=== PATIENT | female | born 1985 | race American Indian/Alaskan Native ===

== ENCOUNTER 2017-02-17 10:22 | Emergency (ER) | payer OTHER ==
[2017-02-17 10:32] VITALS: BP 134/79
--- NOTE | 2017-02-17 10:43 | Emergency Department Report ---
ED Back Pain/Injury HPI - General Chief Complaint: Back Pain/Injury Stated Complaint: BACK PAIN Time Seen by Provider: 02/17/17 10:38 Source: patient Limitations: No Limitations - History of Present Illness MD Complaint: back pain -: Gradual, week(s) Similar Symptoms Previously: No Place: home Radiation: none Severity: moderate Quality: aching Consistency: constant Improves With: none Worsens With: none Associated Symptoms: denies other symptoms, other (recent depo shot). denies: confusion, weakness, chest pain, numbness, difficulty walking, cough, difficulty urinating, diaphoresis, incontinence, fever/chills, constipation, headaches, abdominal pain, loss of appetite, malaise, nausea/vomiting, rash, seizure, shortness of breath, syncope Treatments Prior to Arrival: other medications (flexeril and nsaid her obgyn gave her) - Related Data Home Medications Medication Instructions Recorded Confirmed Last Taken Cyclobenzaprine HCl [Flexeril 5 MG 5 mg PO TID 02/17/17 02/17/17 02/16/17 TAB] Naproxen [Naprosyn] 500 mg PO BID 02/17/17 02/17/17 02/15/17 Allergies Allergy/AdvReac Type Severity Reaction Status Date / Time No Known Allergies Allergy Unverified 02/17/17 10:31 ED Review of Systems ROS: Stated complaint: BACK PAIN Other details as noted in HPI Comment: All other systems reviewed and negative Constitutional: no symptoms reported, see HPI. denies: chills Eyes: as per HPI. denies: eye pain ENT: as per HPI. denies: ear pain, throat pain Respiratory: no symptoms reported, see HPI. denies: cough, orthopnea Cardiovascular: as per HPI. denies: chest pain, palpitations, dyspnea on exertion, orthopnea Endocrine: no symptoms reported, see HPI. denies: excessive sweating, flushing , intolerance to cold, intolerance to heat Gastrointestinal: as per HPI. denies: abdominal pain, nausea, vomiting Genitourinary: as per HPI, other (not sexually active). denies: urgency, dysuria, frequency, hematuria, discharge, abnormal menses, dyspareunia Musculoskeletal: as per HPI, back pain. denies: joint swelling, arthralgia, myalgia Skin: as per HPI. denies: rash, lesions Neurological: as per HPI. denies: headache, weakness Psychiatric: as per HPI. denies: anxiety, depression Hematological/Lymphatic: as per HPI. denies: easy bleeding ED Past Medical Hx - Past Medical History Previous Medical History?: Yes Additional medical history: Back pain, Depo shots - Surgical History Past Surgical History?: No - Family History Family history: no significant - Social History Smoking Status: Never Smoker Substance Use Type: Alcohol, Prescribed - Medications Home Medications: Home Medications Medication Instructions Recorded Confirmed Last Taken Type Cyclobenzaprine HCl [Flexeril 5 MG 5 mg PO TID 02/17/17 02/17/17 02/16/17 History TAB] Naproxen [Naprosyn] 500 mg PO BID 02/17/17 02/17/17 02/15/17 History ED Physical Exam - General Limitations: No Limitations General appearance: alert, in no apparent distress - Head Head exam: Present: atraumatic - Eye Eye exam: Present: normal appearance, PERRL Pupils: Present: normal accommodation - ENT ENT exam: Present: normal exam, mucous membranes moist - Neck Neck exam: Present: normal inspection. Absent: tenderness, meningismus - Respiratory Respiratory exam: Present: normal lung sounds bilaterally. Absent: respiratory distress, wheezes, rales, rhonchi, stridor - Cardiovascular Cardiovascular Exam: Present: regular rate, normal rhythm - GI/Abdominal GI/Abdominal exam: Present: soft - Rectal Rectal exam: Present: deferred - Extremities Exam Extremities exam: Present: normal inspection, full ROM. Absent: tenderness - Back Exam Back exam: Present: normal inspection, muscle spasm, other (large curviature of spine n body habitus). Absent: full ROM, tenderness, CVA tenderness (R), CVA tenderness (L), paraspinal tenderness, vertebral tenderness, rash noted - Expanded Back Exam Expanded Back exam: Absent: saddle anesthesia Back exam: Negative Straight Leg Raising: Left, Right - Neurological Exam Neurological exam: Present: alert, altered, oriented X3, CN II-XII intact, other (large curviture of spine; lifts heavy items for work.) - Psychiatric Psychiatric exam: Present: normal affect, normal mood. Absent: depressed, agitated - Skin Skin exam: Present: warm, dry, intact, normal color. Absent: rash ED Course Vital Signs 02/17/17 10:27 Temperature 97.8 F Pulse Rate 65 Respiratory 18 Rate Blood Pressure 134/79 O2 Sat by Pulse 98 Oximetry - Reevaluation(s) Reevaluation #1: 02/17/17 pt presents w low back pain no dysuria no trauma she lifts heavy objects at work she says that the pains started p depo shot but she has been to ob and he gave her flexeril. she has no vag bleed or hx. she is not sexually active. large curvature of spine xray noted urine noted medicated dc home w follow up ED Medical Decision Making - Radiology Data Radiology results: image reviewed - Differential Diagnosis back pain ro uti v msk etiology Critical care attestation.: If time is entered above; I have spent that time in minutes in the direct care of this critically ill patient, excluding procedure time. ED Disposition Clinical Impression: Back pain Disposition: DC-01 TO HOME OR SELFCARE Is pt being admited?: No Does the pt Need Aspirin: No Condition: Stable Instructions: Low Back Strain (ED), Chronic Back Pain (ED), Back Pain (ED) Additional Instructions: continue your naprosyn and flexeril follow up at the clinic as we discussed given your curve in your spine an ortho MD may be able to help you. see referral given good lifting techniques Referrals: PRIMARY CARE, [Primary Care Provider] - 3-5 Days JEANIE CRUMP MD [Staff Physician] - 3-5 Days Time of Disposition: 12:05
[2017-02-17 11:16] LABS: Bilirubin,Urine NEG (Negative); Blood,Urine NEG (Negative); Ketones,Urine NEG (Negative); Leukocyte Esterase,Urine NEG (Negative); Nitrite,Urine NEG (Negative); Urobilinogen,Urine < 2.0 mg/dL (<2.0); WBC,Urine < 1.0 /HPF (0.0-6.0)
--- NOTE | 2017-02-17 12:00 | XRay Report ---
Lumbar spine 3 views: History: Low back pain. Findings: Mild rotoscoliosis of the lumbar spine with convexity to left. Normal height of vertebral bodies and intervertebral disc. Normal articular surfaces. No fracture. No soft tissue calcification. Impression: No acute bony abnormality.
[2017-02-17] MEDS ORDERED: TORADOL IM ONE (12:01)
[2017-02-17] MEDS ORDERED: DECADRON IM ONE (12:01)
== END 2017-02-17 12:21 | disposition home or self-care (01) ==
LOC: ED 10:22
DX: M54.9 Dorsalgia, unspecified (principal)
CPT/HCPCS: 72100; 81001; 81025; 96372; 99283; J1100; J1885

== ENCOUNTER 2017-07-27 18:14 | Emergency (ER) | payer OTHER ==
[2017-07-27 20:28] LABS: Basophils % (Auto) 0.1 % (0.0-1.8); Hematocrit 42.5 % (30.3-42.9); Hemoglobin 14.6 gm/dl (10.1-14.3); Mean Corpuscular HGB Conc 34 % (30-34); Mean Corpuscular Hemoglobin 30 pg (28-32); Mean Corpuscular Volume 87 fl (79-97); Platelet Count 296 K/mm3 (140-440); Red Blood Count 4.88 M/mm3 (3.65-5.03); Red Cell Distribution Width 12.7 % (13.2-15.2); White Blood Count 5.9 K/mm3 (4.5-11.0)
[2017-07-27 20:45] LABS: Anion Gap 26 mmol/L; BUN/Creatinine Ratio 20; Blood Urea Nitrogen 20 mg/dL (7-17); Calcium 9.8 mg/dL (8.4-10.2); Carbon Dioxide 26 mmol/L (22-30); Chloride 92.5 mmol/L (98-107); Glucose 142 mg/dL (65-100); Potassium 3.5 mmol/L (3.6-5.0); Sodium 141 mmol/L (137-145)
[2017-07-27 20:49] LABS: Bacteria,Urine 1+ /HPF (Negative); Bilirubin,Urine NEG (Negative); Blood,Urine NEG (Negative); Ketones,Urine TR mg/dL (Negative); Leukocyte Esterase,Urine NEG (Negative); Mucus,Urine 2+ /HPF; Nitrite,Urine NEG (Negative); Renal Epithelial Cells,Urine 1 /LPF; Urobilinogen,Urine < 2.0 mg/dL (<2.0)
[2017-07-27 20:50] LABS: Protein,Urine >500 mg/dL (Negative)
[2017-07-28 03:39] VITALS: BP 129/74
== END 2017-07-28 04:25 | disposition left against medical advice (07) ==
LOC: ED 18:14
DX: R11.2 Nausea with vomiting, unspecified (principal); Z53.21 Procedure and treatment not carried out due to patient leaving prior to being seen by health care provider
CPT/HCPCS: 36415; 80048; 81001; 84703; 85025

== ENCOUNTER 2017-07-31 17:43 | Inpatient (IN) | payer OTHER ==
[2017-07-31 19:04] LABS: Basophils % (Auto) 0.2 % (0.0-1.8); Eosinophils % (Auto) 0.1 % (0.0-4.3); Hematocrit 50.4 % (30.3-42.9); Hemoglobin 16.4 gm/dl (10.1-14.3); Mean Corpuscular HGB Conc 33 % (30-34); Mean Corpuscular Hemoglobin 29 pg (28-32); Mean Corpuscular Volume 88 fl (79-97); Platelet Count 349 K/mm3 (140-440); Red Blood Count 5.71 M/mm3 (3.65-5.03); Red Cell Distribution Width 12.8 % (13.2-15.2); White Blood Count 10.7 K/mm3 (4.5-11.0)
[2017-07-31 19:21] LABS: Albumin 5.5 g/dL (3.9-5); Albumin/Globulin Ratio 1.4 %; Bilirubin,Total 1.4 mg/dL (0.1-1.2); Calcium 10.3 mg/dL (8.4-10.2); Chloride 94.1 mmol/L (98-107); Potassium 3.9 mmol/L (3.6-5.0); Total Protein 9.3 g/dL (6.3-8.2)
[2017-07-31 19:41] LABS: Bacteria,Urine 1+ /HPF (Negative); Bilirubin,Urine NEG (Negative); Blood,Urine LG (Negative); Ketones,Urine NEG (Negative); Leukocyte Esterase,Urine TR (Negative); Nitrite,Urine NEG (Negative); Urobilinogen,Urine < 2.0 mg/dL (<2.0)
[2017-07-31 20:47] LABS: Creatine Kinase 71 units/L (30-135)
[2017-07-31 20:54] LABS: Creatine Kinase MB < 1.0 ng/mL (0.0-4.0)
[2017-07-31] MEDS ORDERED: NACL 0.9% 1000 ML 1,000 ML IV ONE (23:28)
[2017-07-31] MEDS ORDERED: ZOFRAN IV ONE (23:28)
--- NOTE | 2017-07-31 23:34 | Emergency Department Report ---
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 Patient was seen in the area on July 27 that she did not wait to be seen by physician. Patient returned today because of continuous vomiting and diarrhea and she felt like she is getting dehydrated. Patient denied any abdominal pain or fever. No other symptoms. MD complaint: nausea, vomiting, diarrhea -: days(s) Description of Vomiting: food contents Description of Diarrhea: water Associated Symptoms: denies other symptoms, loss of appetite, nausea/vomiting - Related Data Home Medications Medication Instructions Recorded Confirmed Last Taken Cyclobenzaprine HCl [Flexeril 5 MG 5 mg PO TID 02/17/17 02/17/17 02/16/17 TAB] Naproxen [Naprosyn] 500 mg PO BID 02/17/17 02/17/17 02/15/17 Allergies Allergy/AdvReac Type Severity Reaction Status Date / Time No Known Allergies Allergy Verified 07/27/17 19:18 ED Review of Systems ROS: Stated complaint: VOMITING Other details as noted in HPI Comment: All other systems reviewed and negative Constitutional: denies: chills, fever Respiratory: denies: cough, orthopnea, shortness of breath, SOB with exertion Cardiovascular: denies: chest pain, palpitations, dyspnea on exertion Gastrointestinal: nausea, vomiting, diarrhea. denies: abdominal pain, hematemesis, melena, hematochezia Neurological: denies: headache, weakness, numbness, paresthesias, abnormal gait ED Past Medical Hx - Past Medical History Additional medical history: Back pain, Depo shots,scoliosis/// alcohol syndrome - Surgical History Past Surgical History?: No - Social History Smoking Status: Never Smoker Substance Use Type: Alcohol - Medications Home Medications: Home Medications Medication Instructions Recorded Confirmed Last Taken Type Cyclobenzaprine HCl [Flexeril 5 MG 5 mg PO TID 02/17/17 02/17/17 02/16/17 History TAB] Naproxen [Naprosyn] 500 mg PO BID 02/17/17 02/17/17 02/15/17 History ED Physical Exam - General Limitations: No Limitations General appearance: alert, in no apparent distress - Head Head exam: Present: atraumatic, normocephalic, normal inspection - ENT ENT exam: Present: mucous membranes dry - Respiratory Respiratory exam: Present: normal lung sounds bilaterally. Absent: respiratory distress, wheezes, rales, rhonchi, chest wall tenderness, accessory muscle use, decreased breath sounds, prolonged expiratory - Cardiovascular Cardiovascular Exam: Present: regular rate, normal rhythm, normal heart sounds - GI/Abdominal GI/Abdominal exam: Present: soft, hyperactive bowel sounds. Absent: distended, tenderness, guarding, rebound, rigid, normal bowel sounds, diminished bowel sounds, hypoactive bowel sounds, organomegaly, mass, bruit, pulsatile mass, hernia - Extremities Exam Extremities exam: Present: normal inspection, full ROM, normal capillary refill. Absent: calf tenderness - Back Exam Back exam: Present: normal inspection, full ROM. Absent: tenderness, CVA tenderness (R), CVA tenderness (L), muscle spasm, paraspinal tenderness, vertebral tenderness, rash noted - Neurological Exam Neurological exam: Present: alert, oriented X3, CN II-XII intact, normal gait - Skin Skin exam: Present: warm, dry, intact, normal color. Absent: cyanosis ED Course Vital Signs 07/31/17 07/31/17 18:36 23:36 Temperature 97.4 F L 97.8 F Pulse Rate 58 L 128 H Respiratory 16 21 Rate Blood Pressure 126/97 Blood Pressure 131/92 [Left] O2 Sat by Pulse 98 99 Oximetry ED Medical Decision Making - Lab Data Result diagrams: 07/31/17 18:47 07/31/17 18:47 - Medical Decision Making Discussed with Dr. Peterson, I presented the patient to him, he agreed to admit the patient to his service. Critical care attestation.: If time is entered above; I have spent that time in minutes in the direct care of this critically ill patient, excluding procedure time. ED Disposition Clinical Impression: Acute renal failure, Intractable vomiting with nausea, Dehydration, severe Disposition: - OP ADMIT IP TO THIS HOSP Is pt being admited?: Yes Condition: Stable Referrals: PRIMARY CARE,MD [Primary Care Provider] - 3-5 Days
[2017-08-01] MEDS ORDERED: ZOFRAN IV PRN (01:18)
[2017-08-01] MEDS ORDERED: TYLENOL PR PRN (01:18)
[2017-08-01] MEDS ORDERED: NACL 0.9% 1000 ML 1,000 ML IV SCH (02:00)
[2017-08-01 05:59] LABS: Calcium 8.8 mg/dL (8.4-10.2); Chloride 103.1 mmol/L (98-107); Potassium 3.4 mmol/L (3.6-5.0)
--- NOTE | 2017-08-01 06:09 | History and Physical Report ---
CHIEF COMPLAINT: Nausea and vomiting. HISTORY OF PRESENT ILLNESS: The patient is a 31-year-old female who has been having nausea and vomiting going on for about 5 days. There is no history of abdominal pain, no history of ingestion of contaminated food or water. The patient said the vomiting has been going on for few days, history of diarrhea some days in the past, but the patient says she felt she is getting dehydrated. There is no history of fever or chills. No history of dizziness. The patient stated she has not been eating much or drinking anything because she cannot keep anything down. PAST MEDICAL HISTORY: Pertinent for alcohol syndrome. Also, the patient has past medical history of back pain and scoliosis. PAST SURGICAL HISTORY: Unremarkable. FAMILY HISTORY: Noncontributory. SOCIAL HISTORY: The patient does not smoke, drinks alcohol, does not use illicit drug. MEDICATIONS: The patient is on Flexeril 5 mg by mouth 3 times daily and also naproxen 500 mg by mouth twice daily. ALLERGIES: There are no known drug allergies. REVIEW OF SYSTEMS: CONSTITUTIONAL: There is no fever, no chills, no diaphoresis. HEENT: There is no headache or sore throat. CARDIOVASCULAR SYSTEM: There is no chest pain, no orthopnea. RESPIRATORY SYSTEM: There is no shortness of breath or cough. GASTROINTESTINAL SYSTEM: Nausea and vomiting present. Diarrhea present. No abdominal pain. No constipation. NEUROLOGICAL SYSTEM: There is no numbness, no dizziness, no altered mental status. MUSCULOSKELETAL SYSTEM: There is no joint pain or swelling. DERMATOLOGICAL SYSTEM: There is no skin rash or itching. GENITOURINARY SYSTEM: There is no dysuria, hematuria, or flank pain. Rest of system review is normal. PHYSICAL EXAMINATION: GENERAL: At the time of exam, the patient was found to be alert, oriented x 3, not in acute disease. VITAL SIGNS: Shows temperature of 97.8 degrees Fahrenheit, pulse of 107, respiration 22, blood pressure 130/91, O2 sat of 98% on room air. HEENT: Showed pupils to be equal, round, reactive to light and accommodation. Extraocular muscles are intact. Oral mucosa looks dry. NECK: Supple with no JVD or carotid bruit. CARDIOVASCULAR SYSTEM: Show first and second heart sounds with no gallops or murmur. RESPIRATORY SYSTEM: Show good air entry on both sides of the lung with no abnormal breath sounds. GASTROINTESTINAL SYSTEM: Show abdomen to be full, soft, nontender with no organomegaly or rigidity. NEUROLOGIC: No focal deficit. MUSCULOSKELETAL SYSTEM: Show no joint swelling or tenderness. DERMATOLOGICAL SYSTEM: Showed no skin rash. GENITOURINARY SYSTEM: Showing no costovertebral angle tenderness. PERTINENT LABORATORY DATA AND IMAGING STUDIES: The patient has CBC done that shows normal white count with elevated hemoglobin of 15.4 and elevated hematocrit of 50.4 suggestive of hemoconcentration. Rest of CBC shows CBC differential with high segmented neutrophil of 81.4%. The patient's chemistry show normal sodium, normal potassium with low chloride of 94.1, elevated CO2 of 32, elevated BUN of 79 with high creatinine of 2.1 and there is no old chemistry to compare. The patient's blood glucose show slightly elevated value of 130 and calcium level was high with a value of 10.3 with elevated total bilirubin of 1.4. The patient's AST level was high with a value of 47 and ALT was high with a value of 110. The patient's troponin level was unremarkable and total CK and CK-MB were all normal. The patient's lipase level was slightly elevated with a value of 68 and albumin level show a high value of 5.5. The patient's urinalysis show high urine wbc's of 28 with trace urine, leukocyte esterase, urine test was negative. IMAGING STUDIES: There is no imaging studies done at this time. DIAGNOSES: 1. Intractable nausea and Vomiting. 2. Dehydration. 3. Acute renal failure. PLAN: The patient will be admitted to medical surgical floor and will be on IV normal saline at 125 mL an hour. The patient will also be on IV Zofran 4 mg q. 8 hours for nausea and vomiting and will be on heparin 5000 units subQ q. 12 hours as needed for DVT prophylaxis and Tylenol 650 mg by rectal every 4 hours as needed for fever and headache. The patient will have basic metabolic panel checked in the morning. The patient's diet will be regular diet. JOB# [id number] OCN/NTS FELISA
[2017-08-01] MEDS: NACL 0.45% 1000 ML 1,000 ML IV SCH ×2 (10:12→18:12)
[2017-08-01] MEDS: HEPARIN SUB-Q SCH ×2 (10:13→23:28)
--- NOTE | 2017-08-01 14:27 | Progress Note ---
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 Radiological test: Abdominal xry - no sign of bowel obstruction Hospitalist Physical exam: GENERAL: AAF lying on bed appeared to be in no discomfort. HEENT: Normocephalic. Atraumatic. No conjunctival congestion or icterus. Patient has moist mucous membranes. NECK: Supple. Trachea midline. CHEST/LUNGS: Clear to auscultated bilaterally, breathing nonlabored. No wheezes crackles or rhonchi. HEART/CARDIOVASCULAR: Regular in rate and rhythm. S1 and S2 positive. ABDOMEN: Abdomen is soft, nontender. Patient has normal bowel sounds. SKIN: There is no rash. Warm and dry. NEURO: No focal motor deficit. Follows command. MUSCULOSKELETAL: No joint effusion or tenderness. EXTRIMITY: No edema, no cyanosis or clubbing. PSYCH: Cooperative. Subjective Date of service: 08/01/17 Interval history: Pt seen and examined she is tolerating diet and states that her symptom improved Objective - Constitutional Vitals: Vital Signs - 12hr 08/01/17 08/01/17 08/01/17 02:41 07:44 11:28 Temperature 98.8 F 98.7 F 98.6 F Pulse Rate 115 H 101 H 94 H Respiratory 17 16 16 Rate Blood Pressure 125/85 126/93 125/95 O2 Sat by Pulse 98 98 99 Oximetry - Labs CBC & Chem 7: 07/31/17 18:47 08/02/17 05:43 Labs: Abnormal lab results 07/31/17 07/31/17 07/31/17 Range/Units 18:47 18:47 19:18 RBC 5.71 H (3.65-5.03) M/mm3 Hgb 16.4 H (10.1-14.3) gm/dl Hct 50.4 H (30.3-42.9) % RDW 12.8 L (13.2-15.2) % Lymph % (Auto) 12.4 L (13.4-35.0) % Seg Neutrophils % 81.4 H (40.0-70.0) % Seg Neutrophils # 8.7 H (1.8-7.7) K/mm3 Sodium (137-145) mmol/L Potassium (3.6-5.0) mmol/L Chloride 94.1 L (98-107) mmol/L Carbon Dioxide 32 H (22-30) mmol/L BUN 79 H (7-17) mg/dL Creatinine 2.1 H D (0.7-1.2) mg/dL Glucose 130 H (65-100) mg/dL Calcium 10.3 H (8.4-10.2) mg/dL Total Bilirubin 1.40 H (0.1-1.2) mg/dL AST 47 H (5-40) units/L ALT 110 H (7-56) units/L Total Protein 9.3 H (6.3-8.2) g/dL Albumin 5.5 H (3.9-5) g/dL Lipase 68 H (13-60) units/L Urine WBC (Auto) 28.0 H (0.0-6.0) /HPF 08/01/17 Range/Units 04:59 RBC (3.65-5.03) M/mm3 Hgb (10.1-14.3) gm/dl Hct (30.3-42.9) % RDW (13.2-15.2) % Lymph % (Auto) (13.4-35.0) % Seg Neutrophils % (40.0-70.0) % Seg Neutrophils # (1.8-7.7) K/mm3 Sodium 150 H (137-145) mmol/L Potassium 3.4 L (3.6-5.0) mmol/L Chloride (98-107) mmol/L Carbon Dioxide (22-30) mmol/L BUN 74 H (7-17) mg/dL Creatinine 1.9 H (0.7-1.2) mg/dL Glucose (65-100) mg/dL Calcium (8.4-10.2) mg/dL Total Bilirubin (0.1-1.2) mg/dL AST (5-40) units/L ALT (7-56) units/L Total Protein (6.3-8.2) g/dL Albumin (3.9-5) g/dL Lipase (13-60) units/L Urine WBC (Auto) (0.0-6.0) /HPF
--- NOTE | 2017-08-01 15:39 | XRay Report ---
FINAL REPORT EXAM: XR ABDOMEN 1V AP HISTORY: possible sbo TECHNIQUE: Supine abdomen PRIORS: None. FINDINGS: Moderate amount of stool and gas present within the colon. No evidence of colonic or small bowel dilatation. No signs of free air. No abnormal calcifications are identified. IMPRESSION: Nonobstructive bowel gas pattern. No acute abnormality seen.
[2017-08-02] MEDS: NACL 0.45% 1000 ML 1,000 ML IV SCH ×2 (02:37→10:14)
[2017-08-02 06:26] LABS: Anion Gap 13 mmol/L; BUN/Creatinine Ratio 28; Blood Urea Nitrogen 22 mg/dL (7-17); Calcium 8.1 mg/dL (8.4-10.2); Carbon Dioxide 26 mmol/L (22-30); Chloride 101.7 mmol/L (98-107); Glucose 96 mg/dL (65-100); Potassium 3.1 mmol/L (3.6-5.0); Sodium 138 mmol/L (137-145)
[2017-08-02] MEDS ORDERED: K-DUR PO ONE ×3 (08:02→19:00)
[2017-08-02] MEDS: HEPARIN SUB-Q SCH (10:07)
[2017-08-02] MEDS ORDERED: PROTONIX PO SCH (12:00)
[2017-08-02] MEDS ORDERED: LEVAQUIN PO SCH (12:00)
[2017-08-02 12:32] LABS: Alanine Aminotransferase 60 units/L (7-56); Albumin 3.4 g/dL (3.9-5); Albumin/Globulin Ratio 1.4 %; Alkaline Phosphatase 48 units/L (35-129); Total Protein 5.9 g/dL (6.3-8.2)
[2017-08-02 12:54] LABS: Bilirubin,Direct < 0.2 mg/dL (0-0.2); Bilirubin,Indirect 0.6 mg/dL
--- NOTE | 2017-08-02 14:52 | Discharge Summary ---
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 She noted to have creatinine of 2.1 and was admitted for further evaluation and management. discharge diagnosis and management: Dominga, vasomotor nephropathy - from dehydration, renal function monitored, avoided nephrotoxin - improved with IV fluid Intractable n/v - likely due to gastroenteritis - placed on iv fluid hydration, monitored BP - treated with antiemetic - resolved on discharge and was tolerating diet Dehydration - from N/V/D - continued supportive care with iv fluid, antiemetics hypernatremia - cont iv fluid hydration hypokalemia - likley from GI loss - monitored and repleted Elevated LFT - likely from dehydration, Abdominal US was unremarkable and LFT trended down Radiological test: Abdominal xry - no sign of bowel obstruction Abdominal US - unremarkable liver and gallbladder Hospitalist Physical exam: GENERAL: AAF lying on bed appeared to be in no discomfort. HEENT: Normocephalic. Atraumatic. No conjunctival congestion or icterus. Patient has moist mucous membranes. NECK: Supple. Trachea midline. CHEST/LUNGS: Clear to auscultated bilaterally, breathing nonlabored. No wheezes crackles or rhonchi. HEART/CARDIOVASCULAR: Regular in rate and rhythm. S1 and S2 positive. ABDOMEN: Abdomen is soft, nontender. Patient has normal bowel sounds. SKIN: There is no rash. Warm and dry. NEURO: No focal motor deficit. Follows command. MUSCULOSKELETAL: No joint effusion or tenderness. EXTRIMITY: No edema, no cyanosis or clubbing. PSYCH: Cooperative. Disposition: DC-01 TO HOME OR SELFCARE Time spent for discharge: 32 minutes Core Measure Documentation - Palliative Care Palliative Care/ Comfort Measures: Not Applicable - Core Measures Any of the following diagnoses?: none Exam - Constitutional Vitals: Temp Pulse Resp BP Pulse Ox 98.9 F 88 16 119/87 99 08/02/17 07:54 08/02/17 07:54 08/02/17 07:54 08/02/17 07:54 08/02/17 07:54 Plan Activity: advance as tolerated Weight Bearing Status: Weight Bear as Tolerated Diet: low fat, low salt Follow up with: PRIMARY CARE, [Primary Care Provider] - 3-5 Days Prescriptions: Levofloxacin [Levaquin TAB] 500 mg PO Q24HR #3 tablet Pantoprazole [Protonix TAB] 20 mg PO QDAY #3 tablet. Potassium Chloride [K-Dur] 20 meq PO QDAY #3 tablet
[2017-08-02 17:59] VITALS: BP 127/83
--- NOTE | 2017-08-03 07:57 | Ultrasound Report ---
FINAL REPORT EXAM: US ABDOMEN LIMITED HISTORY: elevated liver enzyme COMPARISONS: Abdominal radiograph 08/01/2017 FINDINGS: Grayscale and color Doppler ultrasound evaluation of the right upper abdomen Liver is normal in size and contour. Hepatic parenchymal echogenicity is within normal limits. No parenchymal lesion identified. No intra or extrahepatic biliary ductal dilatation. The common duct measures approximately 4 millimeters in caliber. Unremarkable appearance of the gallbladder. No cholelithiasis. Gallbladder wall measures approximately 2 millimeters in thickness. Imaged portion of the pancreatic head is sonographically unremarkable. The remainder of the pancreas is not well seen secondary to overlying bowel gas. No abdominal ascites or free fluid in Rios's pouch. The right kidney measures up to 11.7 cm in length and is without hydronephrosis or echogenic shadowing foci to suggest nephrolithiasis. Medullary pyramids are relatively hypoechoic compared to the renal cortex, which may B increased in echogenicity. IMPRESSION: Unremarkable sonographic appearance of the liver and gallbladder. Probably increased renal cortical echogenicity resulting in relatively hypoechoic appearance of the medullary pyramids. Correlation with renal function and urinalysis is requested for findings of medical renal diseases such as glomerulonephritis and diabetes.
== END 2017-08-02 22:00 | disposition home or self-care (01) | DRG 391 ==
LOC: ED 17:43 → 3A 08-01 01:13
PROVIDERS: ADMIT Internal Medicine; ATTEND Internal Medicine
DX: K52.9 Noninfective gastroenteritis and colitis, unspecified (principal); N17.0 Acute kidney failure with tubular necrosis; E87.0 Hyperosmolality and hypernatremia; E86.0 Dehydration; E87.6 Hypokalemia
CPT/HCPCS: 36415; 74000; 76705; 80048; 80053; 80074; 81001; 81025; 82550; 82553; 83690; 83735; 84132; 84484; 85025; 96361; 96374; J1644; J2405; J7030

== ENCOUNTER 2021-11-07 11:07 | Emergency (ER) | payer MEDICARE, OTHER ==
[2021-11-07] MEDS ORDERED: MORPHINE 4 MG/1 ML INJ IV ONE (11:25)
[2021-11-07] MEDS ORDERED: ONDANSETRON 4 MG/2 ML INJ IV ONE (11:25)
[2021-11-07 12:30] LABS: Basophils % (Auto) 0.2 % (0.0-1.8); Hematocrit 35.5 % (30.3-42.9); Hemoglobin 11.5 gm/dl (10.1-14.3); Lymphocytes # (Auto) 1.2 K/mm3 (1.2-5.4); Lymphocytes % (Auto) 27.8 % (13.4-35.0); Mean Corpuscular HGB Conc 32 % (30-34); Mean Corpuscular Volume 92 fl (79-97); Monocytes # (Auto) 0.4 K/mm3 (0.0-0.8); Monocytes % (Auto) 9.1 % (0.0-7.3); Platelet Count 297 K/mm3 (140-440); Red Blood Count 3.88 M/mm3 (3.65-5.03); Red Cell Distribution Width 12.7 % (13.2-15.2)
--- NOTE | 2021-11-07 12:46 | Vascular Lab Report ---
DUPLEX DOPPLER LOWER EXTREMITY VEINS, LEFT INDICATION: pain/swelling. TECHNIQUE: Duplex doppler imaging was performed through the veins of the left lower extremity using venous compr ession and other maneuvers. COMPARISON: No relevant prior imaging study available. FINDINGS: Left Common femoral vein: Negative. Left Superficial femoral vein: Negative. Left Popliteal vein: Negative. Left Calf veins: Negative. Additional findings: None.. IMPRESSION: 1. No sonographic evidence for DVT in the left lower extremity. Signer Name: Albin Alvarado MD Signed: 11/07/2021 12:42 PM Workstation Name: [id number]
[2021-11-07 12:47] LABS: Blood Urea Nitrogen 10 mg/dL (7-17); Hemolysis Index 0
[2021-11-07 12:52] LABS: BUN/Creatinine Ratio 20
--- NOTE | 2021-11-07 13:44 | Emergency Department Report ---
ED General Adult HPI - General Chief complaint: Back Pain/Injury Stated complaint: ACUTE LOWER BACK PAIN Time Seen by Provider: 11/07/21 11:17 Source: patient, EMS Mode of arrival: Stretcher Limitations: Physical Limitation - History of Present Illness Initial comments: Patient presents to the emergency department chief complaint of back and left leg pain. Patient has a history of scoliosis and states she periodically gets this pain. Patient denies any recent trauma. Patient states that her left leg has been swollen as well which is of concern. She denies chest pain or abdominal pain. -: Gradual Location: back, lower extremity Radiation: non-radiation Severity scale (0 -10): 8 Quality: aching, sharp Consistency: constant Improves with: none Worsens with: none Associated Symptoms: denies other symptoms Treatments Prior to Arrival: none - Related Data Previous Rx's Medication Instructions Recorded Last Taken Type Pantoprazole [Protonix TAB] 20 mg PO QDAY #3 tablet. 08/02/17 Unknown Rx Potassium Chloride [K-Dur] 20 meq PO QDAY #3 tablet 08/02/17 Unknown Rx levoFLOXacin [Levaquin TAB] 500 mg PO Q24HR #3 tablet 08/02/17 Unknown Rx HYDROcodone/APAP 5-325 [[place] 1 each PO Q6HR PRN #12 tablet 11/07/21 Unknown Rx 5/325] Allergies Allergy/AdvReac Type Severity Reaction Status Date / Time naproxen Allergy Unknown Verified 11/07/21 11:13 ED Review of Systems ROS: Stated complaint: ACUTE LOWER BACK PAIN Other details as noted in HPI Comment: All other systems reviewed and negative Constitutional: denies: chills, fever Eyes: denies: eye pain, eye discharge, vision change ENT: denies: ear pain, throat pain Respiratory: denies: cough, shortness of breath, wheezing Cardiovascular: denies: chest pain, palpitations Endocrine: no symptoms reported Gastrointestinal: denies: abdominal pain, nausea, diarrhea Genitourinary: denies: urgency, dysuria, discharge Musculoskeletal: back pain. denies: joint swelling, arthralgia Skin: denies: rash, lesions Neurological: denies: headache, weakness, paresthesias Psychiatric: denies: anxiety, depression Hematological/Lymphatic: denies: easy bleeding, easy bruising ED Past Medical Hx - Past Medical History Previous Medical History?: Yes Additional medical history: Back pain, Depo shots,scoliosis/// alcohol syndrome - Surgical History Past Surgical History?: No - Social History Smoking Status: Never Smoker Substance Use Type: Alcohol - Medications Home Medications: Home Medications Medication Instructions Recorded Confirmed Last Taken Type Pantoprazole [Protonix TAB] 20 mg PO QDAY #3 tablet. 08/02/17 Unknown Rx Potassium Chloride [K-Dur] 20 meq PO QDAY #3 tablet 08/02/17 Unknown Rx levoFLOXacin [Levaquin TAB] 500 mg PO Q24HR #3 tablet 08/02/17 Unknown Rx HYDROcodone/APAP 5-325 [[place] 1 each PO Q6HR PRN #12 tablet 11/07/21 Unknown Rx 5/325] ED Physical Exam - General Limitations: Physical Limitation General appearance: alert, in no apparent distress - Head Head exam: Present: atraumatic, normocephalic - Eye Eye exam: Present: normal appearance - ENT ENT exam: Present: normal exam - Neck Neck exam: Present: normal inspection - Respiratory Respiratory exam: Absent: normal lung sounds bilaterally, respiratory distress, wheezes, rales - Cardiovascular Cardiovascular Exam: Present: regular rate, normal rhythm - GI/Abdominal GI/Abdominal exam: Present: soft. Absent: distended, tenderness - Extremities Exam Extremities exam: Present: other (Edema to left lower extremity with tenderness palpation the posterior aspect of the left lower extremity) - Neurological Exam Neurological exam: Present: oriented X3, CN II-XII intact - Psychiatric Psychiatric exam: Present: normal affect - Skin Skin exam: Present: warm, dry ED Course Vital Signs 11/07/21 11:10 Temperature 98.7 F Pulse Rate 117 H Respiratory 18 Rate Blood Pressure 128/77 [Left] O2 Sat by Pulse 96 Oximetry ED Medical Decision Making - Lab Data Result diagrams: 11/07/21 11:48 11/07/21 11:48 Lab Results 11/07/21 11/07/21 Range/Units 11:48 11:48 WBC 4.2 L (4.5-11.0) K/mm3 RBC 3.88 (3.65-5.03) M/mm3 Hgb 11.5 (10.1-14.3) gm/dl Hct 35.5 (30.3-42.9) % MCV 92 (79-97) fl MCH 30 (28-32) pg MCHC 32 (30-34) % RDW 12.7 L (13.2-15.2) % Plt Count 297 (140-440) K/mm3 Lymph % (Auto) 27.8 (13.4-35.0) % [place] % (Auto) 9.1 H (0.0-7.3) % Eos % (Auto) 0.0 (0.0-4.3) % Baso % (Auto) 0.2 (0.0-1.8) % Lymph # (Auto) 1.2 (1.2-5.4) K/mm3 [place] # (Auto) 0.4 (0.0-0.8) K/mm3 Eos # (Auto) 0.0 (0.0-0.4) K/mm3 Baso # (Auto) 0.0 (0.0-0.1) K/mm3 Seg Neutrophils % 62.9 (40.0-70.0) % Seg Neutrophils # 2.6 (1.8-7.7) K/mm3 Sodium 139 (137-145) mmol/L Potassium 3.9 (3.6-5.0) mmol/L Chloride 102.9 (98-107) mmol/L Carbon Dioxide 23 (22-30) mmol/L Anion Gap 17 mmol/L BUN 10 (7-17) mg/dL Creatinine 0.5 L (0.6-1.2) mg/dL Estimated GFR > 60 ml/min BUN/Creatinine Ratio 20 % Glucose 91 (65-100) mg/dL Calcium 10.0 (8.4-10.2) mg/dL - Radiology Data Radiology results: report reviewed - Medical Decision Making Discussed results with patient Critical care attestation.: If time is entered above; I have spent that time in minutes in the direct care of this critically ill patient, excluding procedure time. ED Disposition Clinical Impression: Leg pain, Back pain Disposition: 01 HOME / SELF CARE / HOMELESS Is pt being admited?: No Does the pt Need Aspirin: No Condition: Stable Instructions: Acute Back Pain, Adult Additional Instructions: Return if worse Referrals: SETH LAINEZ MD [Staff Physician] - 3-5 Days Time of Disposition: 13:53
[2021-11-07] MEDS ORDERED: HYDROcodone/ACETAMINOPHEN 5-325 MG TAB PO ONE (13:52)
[2021-11-07] MEDS ORDERED: ONDANSETRON 4 MG ODT TAB PO ONE (13:52)
[2021-11-07 14:03] VITALS: BP 120/86
== END 2021-11-07 15:28 | disposition home or self-care (01) ==
LOC: ED 11:07
DX: M79.605 Pain in left leg (principal); M54.9 Dorsalgia, unspecified; Z91.09 Other allergy status, other than to drugs and biological substances
CPT/HCPCS: 36415; 80048; 85025; 93971; 96374; 96375; 99284; J2270; J2405; J3490; Q0162

== ENCOUNTER 2021-11-25 19:26 | Emergency (ER) | payer MEDICARE ==
--- NOTE | 2021-11-25 20:06 | Emergency Department Report ---
ED General Adult HPI - General Chief complaint: Extremity Injury, Lower Stated complaint: LEG PAIN/SWELLING Time Seen by Provider: 11/25/21 19:55 Source: EMS Mode of arrival: Ambulatory Limitations: Physical Limitation - History of Present Illness Initial comments: Patient is 36 years old female with history of severe scoliosis. Patient brought to the emergency room via EMS for evaluation of left lower extremity pain and swelling has been going on for few months however getting worse in the last few days. EMS stated that patient also had history of panic attack and she became tachypneic and blood pressure was high. Patient was given Versed and fentanyl and that help her symptoms. Patient denied any chest pain or shortness of breath. No fever or chills. Severity scale (0 -10): 10 - Related Data Previous Rx's Medication Instructions Recorded Last Taken Type Pantoprazole [Protonix TAB] 20 mg PO QDAY #3 tablet. 08/02/17 Unknown Rx Potassium Chloride [K-Dur] 20 meq PO QDAY #3 tablet 08/02/17 Unknown Rx levoFLOXacin [Levaquin TAB] 500 mg PO Q24HR #3 tablet 08/02/17 Unknown Rx HYDROcodone/APAP 5-325 [[place] 1 each PO Q6HR PRN #12 tablet 11/07/21 Unknown Rx 5/325] Ondansetron [Zofran Odt] 4 mg PO Q8HR PRN #14 tab.rapdis 11/25/21 Unknown Rx traMADoL [Ultram 50 MG tab] 50 mg PO Q4HR PRN #14 tablet 11/25/21 Unknown Rx Allergies Allergy/AdvReac Type Severity Reaction Status Date / Time naproxen Allergy Unknown Verified 11/07/21 11:13 ED Review of Systems ROS: Stated complaint: LEG PAIN/SWELLING Other details as noted in HPI Comment: All other systems reviewed and negative Constitutional: denies: chills, fever Respiratory: denies: cough, shortness of breath, SOB with exertion, SOB at rest Cardiovascular: denies: chest pain, palpitations Gastrointestinal: denies: abdominal pain, nausea, vomiting Musculoskeletal: denies: back pain Neurological: denies: headache, weakness ED Past Medical Hx - Past Medical History Previous Medical History?: Yes Additional medical history: Back pain, Depo shots,scoliosis/// alcohol syndrome - Social History Smoking Status: Never Smoker Substance Use Type: None - Medications Home Medications: Home Medications Medication Instructions Recorded Confirmed Last Taken Type Pantoprazole [Protonix TAB] 20 mg PO QDAY #3 tablet. 08/02/17 Unknown Rx Potassium Chloride [K-Dur] 20 meq PO QDAY #3 tablet 08/02/17 Unknown Rx levoFLOXacin [Levaquin TAB] 500 mg PO Q24HR #3 tablet 08/02/17 Unknown Rx HYDROcodone/APAP 5-325 [[place] 1 each PO Q6HR PRN #12 tablet 11/07/21 Unknown Rx 5/325] Ondansetron [Zofran Odt] 4 mg PO Q8HR PRN #14 tab.rapdis 11/25/21 Unknown Rx traMADoL [Ultram 50 MG tab] 50 mg PO Q4HR PRN #14 tablet 11/25/21 Unknown Rx ED Physical Exam - General Limitations: Physical Limitation General appearance: alert, in no apparent distress - Head Head exam: Present: atraumatic, normocephalic, normal inspection - Eye Eye exam: Present: normal appearance - ENT ENT exam: Present: normal exam, normal orophraynx, mucous membranes moist - Neck Neck exam: Present: normal inspection, full ROM. Absent: tenderness, meningismus - Respiratory Respiratory exam: Present: normal lung sounds bilaterally - Cardiovascular Cardiovascular Exam: Present: regular rate, normal rhythm, normal heart sounds - GI/Abdominal GI/Abdominal exam: Present: soft, normal bowel sounds. Absent: distended, tenderness, guarding, rebound, rigid, organomegaly, mass, bruit, pulsatile mass, hernia - Extremities Exam Extremities exam: Present: normal inspection, normal capillary refill. Absent: pedal edema, calf tenderness - Back Exam Back exam: Present: normal inspection, full ROM. Absent: CVA tenderness (R), CVA tenderness (L) - Neurological Exam Neurological exam: Present: alert, oriented X3, CN II-XII intact - Psychiatric Psychiatric exam: Present: normal mood - Skin Skin exam: Present: warm, intact, normal color ED Course Vital Signs 11/25/21 19:43 Temperature 98 F Pulse Rate 100 H Respiratory 14 Rate Blood Pressure 112/74 [Right] O2 Sat by Pulse 97 Oximetry ED Medical Decision Making - Lab Data Result diagrams: 11/25/21 20:28 11/25/21 20:03 - Radiology Data Radiology results: report reviewed - Medical Decision Making Patient is 36 years old female with history of severe scoliosis. Patient brought to the emergency room via EMS for evaluation of left lower extremity pain and swelling has been going on for few months however getting worse in the last few days. EMS stated that patient also had history of panic attack and she became tachypneic and blood pressure was high. Patient was given Versed and fentanyl and that help her symptoms. Patient denied any chest pain or shortness of breath. No fever or chills. Patient received morphine for pain. Left lower extremity Doppler ultrasound is negative for DVT. Left knee and left tibia and fibula x-ray is unremarkable. Patient given prescription for tramadol and advised to follow-up with her prima care physician in the next 2 to 3 days and to return to the ER if she develop any new symptoms. Critical care attestation.: If time is entered above; I have spent that time in minutes in the direct care of this critically ill patient, excluding procedure time. ED Disposition Clinical Impression: Left leg pain Disposition: HOME / SELF CARE / HOMELESS Is pt being admited?: No Condition: Stable Instructions: Radicular Pain, Leg Cramps Prescriptions: traMADoL [Ultram 50 MG tab] 50 mg PO Q4HR PRN #14 tablet PRN Reason: Pain Ondansetron [Zofran Odt] 4 mg PO Q8HR PRN #14 tab.rapdis PRN Reason: Nausea And Vomiting Referrals: PRIMARY CARE,MD [Primary Care Provider] - 3-5 Days
[2021-11-25 20:29] LABS: INR 0.87 (0.87-1.13)
[2021-11-25 20:32] LABS: Alanine Aminotransferase 11 units/L (7-56); Albumin 4.4 g/dL (3.9-5); Blood Urea Nitrogen 6 mg/dL (7-17); Calcium 9.6 mg/dL (8.4-10.2); Hemolysis Index 139
[2021-11-25 20:34] LABS: BUN/Creatinine Ratio 12; Bilirubin,Direct < 0.2 mg/dL (0-0.2)
[2021-11-25 20:39] LABS: Hematocrit 35.4 % (30.3-42.9); Hemoglobin 11.3 gm/dl (10.1-14.3); Mean Corpuscular HGB Conc 32 % (30-34); Mean Corpuscular Volume 92 fl (79-97); Platelet Count 308 K/mm3 (140-440); Red Blood Count 3.84 M/mm3 (3.65-5.03); Red Cell Distribution Width 13.5 % (13.2-15.2)
[2021-11-25 20:44] LABS: Partial Thromboplastin Time < 24.2 Sec. (24.2-36.6)
[2021-11-25] MEDS ORDERED: SODIUM CHLORIDE 0.9% 1000 ML 1,000 ML IV ONE (20:53)
[2021-11-25] MEDS ORDERED: MORPHINE 4 MG/1 ML INJ IV ONE (20:53)
[2021-11-25] MEDS ORDERED: ONDANSETRON 4 MG/2 ML INJ IV ONE (20:53)
--- NOTE | 2021-11-25 21:57 | XRay Report ---
LEFT TIBIA-FIBULA 3 VIEW(S) INDICATION / CLINICAL INFORMATION: LEFT LEG PAIN. COMPARISON: None available. FINDINGS: BONES / JOINT(S): No acute fracture or subluxation. No significant arthritis. SOFT TISSUES: No significant abnormality. ADDITIONAL FINDINGS: None. Signer Name: Basilio Sr MD Signed: 11/25/2021 9:52 PM Workstation Name: [id number]
--- NOTE | 2021-11-25 21:57 | XRay Report ---
LEFT KNEE 2 VIEW(S) INDICATION / CLINICAL INFORMATION: KNEE PAIN COMPARISON: None available. FINDINGS: BONES / JOINT(S): No acute fracture or subluxation. No significant arthritis. SOFT TISSUES: No significant abnormality. ADDITIONAL FINDINGS: None. Signer Name: Basilio Sr MD Signed: 11/25/2021 9:53 PM Workstation Name: [id number]
--- NOTE | 2021-11-25 21:58 | Vascular Lab Report ---
DUPLEX DOPPLER LOWER EXTREMITY VEINS, LEFT INDICATION / CLINICAL INFORMATION: LEFT LEG PAIN AND SWELLING.. TECHNIQUE: Duplex doppler imaging was performed through the veins of the left lower extremity using v enous compression and other maneuvers. COMPARISON: None available. FINDINGS: LEFT COMMON FEMORAL VEIN: Negative. LEFT FEMORAL VEIN: Negative. LEFT POPLITEAL VEIN: Negative. LEFT CALF VEINS: Negative. ADDITIONAL FINDINGS: None. IMPRESSION: 1. No sonographic evidence for DVT in the left lower extremity. Signer Name: Basilio Sr MD Signed: 11/25/2021 9:54 PM Workstation Name: [id number]
[2021-11-26 01:11] VITALS: BP 110/68
== END 2021-11-26 00:25 | disposition home or self-care (01) ==
LOC: ED 19:26
DX: M79.605 Pain in left leg (principal); Z91.09 Other allergy status, other than to drugs and biological substances
CPT/HCPCS: 36415; 73560; 73590; 80048; 80076; 85025; 85379; 85610; 85730; 93971; 96361; 96374; 96375; 99284; J2270; J2405; J7030; Q0162

== ENCOUNTER 2022-01-12 12:38 | Emergency (ER) | payer MEDICARE ==
[2022-01-12] MEDS ORDERED: MORPHINE 2 MG/1 ML INJ IV ONE (16:25)
--- NOTE | 2022-01-12 16:33 | Event Note ---
ED Screening Note Date of service: 01/12/22 Time: 16:28 ED Screening Note: 37 year old was brought to ED by mom with complaints of bilateral LE swelling. Patient states 3 weeks ago she started with pain and mild swelling to left leg, this has since gotten worse and recently developed pain and swelling to right leg. She denies any chest pain or SOB. Mom and patient unable to give clear past medical hx; Patient is wheel chair bound but both mom nor patient can say why. 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 She also has hx panic disorders. HR at triage show 134, repeat HR 104, remaining VS stable. Lower extremity exam show : severe swelling bilateral LE 1-2 + pitting with moderate ttp posterior leg. No skin redness or bruising. Dorsalis pedis pulse and cap refill normal. This initial assessment/diagnostic orders/clinical plan/treatment(s) is/are subject to change based on patients health status, clinical progression and re- assessment by fellow clinical providers in the ED. Further treatment and workup at subsequent clinical providers discretion. Patient/guardian urged not to elope from the ED as their condition may be serious if not clinically assessed and managed. Initial orders include: labs including EKG, venous doppler and cxr.
[2022-01-12 16:48] LABS: Basophils % (Auto) 0.5 % (0.0-1.8); Eosinophils % (Auto) 0.3 % (0.0-4.3); Hematocrit 33.1 % (30.3-42.9); Hemoglobin 11.4 gm/dl (10.1-14.3); Lymphocytes # (Auto) 1.4 K/mm3 (1.2-5.4); Lymphocytes % (Auto) 27.2 % (13.4-35.0); Mean Corpuscular HGB Conc 34 % (30-34); Mean Corpuscular Volume 92 fl (79-97); Monocytes # (Auto) 0.4 K/mm3 (0.0-0.8); Platelet Count 342 K/mm3 (140-440)
[2022-01-12 16:55] VITALS: BP 126/88
[2022-01-12 16:59] LABS: INR 0.88 (0.87-1.13)
[2022-01-12 17:05] LABS: Alanine Aminotransferase 12 units/L (7-56); Albumin 4.4 g/dL (3.9-5); Blood Urea Nitrogen 8 mg/dL (7-17); Calcium 9.5 mg/dL (8.4-10.2); Hemolysis Index 3
[2022-01-12 17:21] LABS: BUN/Creatinine Ratio 13
--- NOTE | 2022-01-12 17:24 | XRay Report ---
CHEST 1 VIEW 01/12/2022 5:10 PM INDICATION / CLINICAL INFORMATION: Tachy/leg swelling. COMPARISON: None available. FINDINGS: SUPPORT DEVICES: None. HEART / MEDIASTINUM: No significant abnormality. LUNGS / PLEURA: No significant pulmonary or pleural abnormality. No pneumothorax. ADDITIONAL FINDINGS: No significant additional findings. IMPRESSION: 1. No acute findings. Signer Name: Mirza Sommers MD Signed: 01/12/2022 5:19 PM Workstation Name: [id number]
--- NOTE | 2022-01-12 17:29 | Vascular Lab Report ---
DUPLEX DOPPLER LOWER EXTREMITY VEINS, BILATERAL INDICATION / CLINICAL INFORMATION: Bilateral LE swelling/pain. TECHNIQUE: Duplex doppler imaging was performed through the veins of both lower extremities using kendrick ous compression and other maneuvers. COMPARISON: None available. FINDINGS: RIGHT COMMON FEMORAL VEIN: Negative. RIGHT FEMORAL VEIN: Negative. RIGHT POPLITEAL VEIN: Negative. RIGHT CALF VEINS: Negative. LEFT COMMON FEMORAL VEIN: Negative. LEFT FEMORAL VEIN: Negative. LEFT POPLITEAL VEIN: Negative. LEFT CALF VEINS: Negative. ADDITIONAL FINDINGS: None. IMPRESSION: 1. No sonographic evidence for DVT in either lower extremity. Signer Name: Basilio Sr MD Signed: 01/12/2022 5:24 PM Workstation Name: [employer] [facility] [place] [id number]
--- NOTE | 2022-01-12 18:59 | Emergency Department Report ---
ED General Adult HPI - General Chief complaint: Extremity Problem,Nontraumatic Stated complaint: LOWER EXTREMITIES SWELLING Time Seen by Provider: 01/12/22 16:48 Source: patient, EMS Mode of arrival: Stretcher Limitations: Physical Limitation - History of Present Illness Initial comments: Patient is a 36-year-old female presenting with complaint of bilateral leg swelling for the past 4 days. She reports being bedbound for over 2 years due to unknown cause and was using a walker prior to to that. She denies any chest pain or shortness of breath. Severity scale (0 -10): 4 - Related Data Previous Rx's Medication Instructions Recorded Last Taken Type Pantoprazole [Protonix TAB] 20 mg PO QDAY #3 tablet.dr 08/02/17 Unknown Rx Potassium Chloride [K-Dur] 20 meq PO QDAY #3 tablet 08/02/17 Unknown Rx levoFLOXacin [Levaquin TAB] 500 mg PO Q24HR #3 tablet 08/02/17 Unknown Rx HYDROcodone/APAP 5-325 [[place] 1 each PO Q6HR PRN #12 tablet 11/07/21 Unknown Rx 5/325] Ondansetron [Zofran Odt] 4 mg PO Q8HR PRN #14 tab.rapdis 11/25/21 Unknown Rx traMADoL [Ultram 50 MG tab] 50 mg PO Q4HR PRN #14 tablet 11/25/21 Unknown Rx Furosemide [Lasix] 40 mg PO DAILY #7 01/12/22 Unknown Rx Allergies Allergy/AdvReac Type Severity Reaction Status Date / Time naproxen Allergy Unknown Verified 11/07/21 11:13 ED Review of Systems ROS: Stated complaint: LOWER EXTREMITIES SWELLING Other details as noted in HPI Comment: All other systems reviewed and negative Constitutional: denies: chills, fever Respiratory: denies: cough, shortness of breath, wheezing Cardiovascular: edema. denies: chest pain, palpitations Gastrointestinal: denies: abdominal pain, nausea, diarrhea Genitourinary: denies: urgency, dysuria, discharge Skin: denies: rash, lesions Neurological: denies: headache ED Past Medical Hx - Past Medical History Additional medical history: Back pain, Depo shots,scoliosis/// alcohol syndrome - Social History Smoking Status: Never Smoker Substance Use Type: None - Medications Home Medications: Home Medications Medication Instructions Recorded Confirmed Last Taken Type Pantoprazole [Protonix TAB] 20 mg PO QDAY #3 tablet. 08/02/17 Unknown Rx Potassium Chloride [K-Dur] 20 meq PO QDAY #3 tablet 08/02/17 Unknown Rx levoFLOXacin [Levaquin TAB] 500 mg PO Q24HR #3 tablet 08/02/17 Unknown Rx HYDROcodone/APAP 5-325 [[place] 1 each PO Q6HR PRN #12 tablet 11/07/21 Unknown Rx 5/325] Ondansetron [Zofran Odt] 4 mg PO Q8HR PRN #14 tab.rapdis 11/25/21 Unknown Rx traMADoL [Ultram 50 MG tab] 50 mg PO Q4HR PRN #14 tablet 11/25/21 Unknown Rx Furosemide [Lasix] 40 mg PO DAILY #7 01/12/22 Unknown Rx ED Physical Exam - General Limitations: Physical Limitation General appearance: alert, in no apparent distress - Head Head exam: Present: atraumatic, normocephalic - Respiratory Respiratory exam: Present: normal lung sounds bilaterally, respiratory distress - Cardiovascular Cardiovascular Exam: Present: regular rate, normal rhythm, normal heart sounds - GI/Abdominal GI/Abdominal exam: Present: soft. Absent: distended, tenderness - Rectal Rectal exam: Present: deferred - Extremities Exam Extremities exam: Present: pedal edema (2+ pitting edema to both legs). Absent: calf tenderness - Neurological Exam Neurological exam: Present: alert, oriented X3, CN II-XII intact - Psychiatric Psychiatric exam: Present: normal affect, normal mood - Skin Skin exam: Present: warm, dry, intact, normal color ED Course Vital Signs 01/12/22 01/12/22 01/12/22 12:56 16:18 16:54 Temperature 98.4 F Pulse Rate 134 H 104 H 100 H Respiratory 16 18 Rate Blood Pressure 128/89 126/88 [Left] O2 Sat by Pulse 99 99 Oximetry ED Medical Decision Making - Lab Data Result diagrams: 01/12/22 16:27 01/12/22 16:27 - Medical Decision Making Patient presenting with complaint of bilateral lower leg edema beginning 4 days ago. She denies any chest pain or shortness of breath. Chest x-ray is unremarkable. Bilateral lower extremity Dopplers negative for DVT. Family reports that patient barely eats. I encouraged patient to increase her caloric intake and also believe she would benefit from physical therapy. I also encouraged her to elevate her legs at night and while resting. Will discharge home with Rx for Lasix. Follow-up with PCP within 1 week. Critical care attestation.: If time is entered above; I have spent that time in minutes in the direct care of this critically ill patient, excluding procedure time. ED Disposition Clinical Impression: Bilateral leg edema Disposition: 01 HOME / SELF CARE / HOMELESS Is pt being admited?: No Does the pt Need Aspirin: No Condition: Stable Instructions: Peripheral Edema Referrals: PRIMARY CARE, [Primary Care Provider] - 3-5 Days Time of Disposition: 19:03
== END 2022-01-13 03:23 | disposition home or self-care (01) ==
LOC: ED 12:38
DX: R60.0 Localized edema (principal); Z91.09 Other allergy status, other than to drugs and biological substances; Z79.899 Other long term (current) drug therapy
CPT/HCPCS: 36415; 71045; 80053; 83880; 85025; 85610; 85730; 93970; 96374; 99285; J2270